=== PATIENT | female | born 1960 | race Caucasian/White ===

== ENCOUNTER → 2020-11-24 | Outpatient (CLI) | payer OTHER ==
--- NOTE | 2020-11-24 08:43 | RAD ---
EXAM: Thyroid sonogram. HISTORY: Hypothyroidism. TECHNIQUE: Sonographic imaging of the thyroid was performed. COMPARISON: None. FINDINGS: The right thyroid lobe measures 3.1 x 0.9 x 0.7 cm. The left thyroid lobe measures 3.4 x 1. 0 x 1.1 cm. The thyroid isthmus measures 2 mm. The thyroid parenchyma is diffusely heterogeneous. The re is a solid-appearing circumscribed hypoechoic nodule with eccentric calcification within the infer ior right thyroid lobe measuring 1.4 x 0.8 x 0.5 cm. IMPRESSION: 1. Mildly small and diffusely heterogeneous thyroid. This can be seen as a sequela of thyroiditis. 2. 1.4 cm right thyroid nodule. TI-RADS Category 4. Electronically signed by: Keke Peters MD (11/24/2020 8:41 AM) [id number]
== END ==
LOC: US 07:47
PROVIDERS: ATTEND Physician Assistant Medical
DX: E04.1 Nontoxic single thyroid nodule (principal); E03.9 Hypothyroidism, unspecified
CPT/HCPCS: 76536

== ENCOUNTER 2021-01-07 05:26 | Emergency (ER) | payer OTHER ==
[~2021-01-07] VITALS: Ht 149.9 cm; Wt 76.4 kg
[2021-01-07 05:49] VITALS: BP 192/107
--- NOTE | 2021-01-07 06:07 | PHYS DOC ---
Past History Past Medical History: No Pertinent History Past Surgical History: Hysterectomy, Other Additional Past Surgical Histo: FOOT SX Alcohol Use: None Adult General Chief Complaint Chief Complaint: FEVER HPI HPI Patient is a 60-year-old female with history of hypothyroid only presenting for nausea and vomit. Reports she made homemade tacos yesterday evening, unsure if they were adequately cooked. Reports waking up this morning at 2:30 AM with waves of nausea and abdominal cramping, subsequently had x3 episodes of nonbloody nonbilious emesis. Also reports a fever T-max 101.0 earlier this morning that resolved with Advil. Reports generalized chills, ongoing nausea and experienced x1 episode of looser than usual stool which concerned her prompting her to come in for evaluation. No known sick contacts but patient admits working at [employer] and unsure if she has been in contact with anyone sick, no recent travel, she has not been vaccinated for COVID-19, no chest pain, ripping or tearing sensation in chest, shortness of breath, ugo abdominal pain, UTI-like symptoms, changes in motor or sensory or neuro function, no lightheadedness or dizziness. Review of Systems Review of Systems Fourteen body systems of review of systems have been reviewed. See HPI for pertinent positives and negative responses, other fish all other systems are negative, non-pertinent or non-contributory Allergies Allergies Allergies Coded Allergies Type Severity Reaction Last Updated Verified No Known Drug Allergies 01/07/21 No Physical Exam Physical Exam Constitutional: Well developed, well nourished, no acute distress, non-toxic appearance. HENT: Normocephalic, atraumatic, bilateral external ears normal, oropharynx moist, no oral exudates, nose normal. Eyes: PERRLA, EOMI, conjunctiva normal, no discharge. Neck: Normal range of motion, no tenderness, supple, no stridor. Cardiovascular: Heart rate regular, sinus rhythm, no murmurs rubs or gallops Lungs & Thorax: Bilateral breath sounds clear to auscultation Abdomen: Bowel sounds normal, soft, no tenderness, no masses, no pulsatile masses. Nonsurgical abdomen, no peritoneal signs Skin: Warm, dry, no erythema, no rash. Back: No tenderness, no CVA tenderness. Extremities: No tenderness, no cyanosis, no clubbing, ROM intact, no edema. Neurologic: Alert and oriented X 3, grossly normal motor & sensory function, no focal deficits noted. Psychologic: Affect normal, judgement normal, mood normal. Current Patient Data Vital Signs Vital Signs Date Time Temp Pulse Resp B/P (MAP) Pulse Ox O2 Delivery O2 Flow Rate FiO2 01/07/21 05:49 95.9 65 18 192/107 (135) 92 Room Air Lab Results Current Medications Medications (Trade) Dose Ordered Sig/Dave Route PRN Reason Start Time Stop Time Status Last Admin Dose Admin Acetaminophen (Tylenol) 650 mg 1X ONCE PO 01/07/21 06:15 01/07/21 06:16 DC 01/07/21 06:19 Ondansetron HCl (Zofran Odt) 4 mg 1X ONCE PO 01/07/21 06:15 01/07/21 06:16 DC 01/07/21 06:20 Clonidine HCl (Catapres) 0.1 mg 1X ONCE PO 01/07/21 07:15 01/07/21 07:26 DC EKG EKG EKG ordered and interpreted by myself 0635 hrs. as sinus rhythm at 63 bpm, prolonged MS at 202 otherwise unremarkable intervals, no axis deviation, no acute ischemic findings, no STEMI Radiology/Procedures Radiology/Procedures [] Heart Score C/O Chest Pain: No HEART Score for Chest Pain: HEART Score for Chest Pain Response (Comments) Value History Slighlty/Non-Suspicious 0 ECG Normal 0 Age >45 - < 65 1 Risk Factors 1 or 2 Risk Factors 1 Total 2 Risk Factors: Risk Factors: DM, Current or recent (<one month) smoker, HTN, HLP, family h istory of CAD, obesity. Risk Scores: Risk Factors: DM, Current or recent (<one month) smoker, HTN, HLP, family history of CAD, obesity. Course & Med Decision Making Course & Med Decision Making Pertinent Labs and Imaging studies reviewed. (See chart for details) [] Dragon Disclaimer Dragon Disclaimer This electronic medical record was generated, in whole or in part, using a voice recognition dictation system. Departure Departure: Impression: Primary Impression: Nausea, vomiting, and diarrhea Additional Impression: Elevated blood pressure reading without diagnosis of hypertension Disposition: HOME / SELF CARE / HOMELESS Condition: IMPROVED Referrals: BALWINDER ROSA (PCP) Patient Instructions: Nausea and Vomiting Additional Instructions: You were seen for nausea, vomit and x1 episode of diarrhea. You most likely have a viral illness which should resolve in the next few days to a week. You were prescribed Zofran which should be used as needed for nausea. In addition, you also had symptoms likely due to your elevated blood pressure despite you not having a diagnosis of hypertension. You were given a medication while in ER to improve this but said medication is for short-term use only. As disclosed, it is pertinent that you keep a blood pressure log at home and bring this to your outpatient primary care visit in upcoming 72 hours for review. You should return to the ED if you develop abdominal pain, fever > 100.3, black/bloody stools, black/bloody vomiting, cannot keep water down, or any other new or concerning symptoms. Scripts Ondansetron (ONDANSETRON ODT) 4 Mg Tab.rapdis 1 TAB PO PRN Q6-8HRS for NAUSEA, #16 TAB Prov: LINA PRATRE DO 01/07/21 Problem Qualifiers LINA PRATER DO Jan 07, 2021 06:07
[2021-01-07] MEDS ORDERED: ACETAMINOPHEN 325 MG TABLET PO ONE (06:15)
[2021-01-07] MEDS ORDERED: ONDANSETRON ODT 4 MG TAB.RAPDIS PO ONE (06:15)
--- NOTE | 2021-01-07 06:37 | EKG ---
[address] [address] Test Date: 2021-01-07 Test Time: 06:28:47 Pat Name: RONNIE COLEMAN Department: Room: Gender: F [employer] Sales Representative: : [id number] Requested By: LINA PRATER Order Number: [id number] Reading MD: Measurements Intervals [place] Rate: 63 P: 30 NV: 202 QRS: 6 QRSD: 100 T: 43 QT: 442 QTc: 456 Interpretive Statements SINUS RHYTHM NORMAL ECG RI6.02 No previous ECG available for comparison
[2021-01-07] MEDS ORDERED: cloNIDine HCL 0.1 MG TABLET PO ONE (07:15)
[2021-01-07] MEDS ORDERED: ONDA4TAB12 PO (07:19)
== END 2021-01-07 07:25 | disposition home or self-care (01) ==
LOC: ER 05:26
DX: R11.2 Nausea with vomiting, unspecified (principal); R19.7 Diarrhea, unspecified; R03.0 Elevated blood-pressure reading, without diagnosis of hypertension; R10.9 Unspecified abdominal pain; R68.83 Chills (without fever); E03.9 Hypothyroidism, unspecified; Z90.710 Acquired absence of both cervix and uterus
CPT/HCPCS: 82947; 93005; 99284; Q0162; 99283

== ENCOUNTER → 2021-11-28 | Outpatient (CLI) | payer OTHER ==
[~2021-11-28] MED LIST: ONDA4TAB12 PO
--- NOTE | 2021-11-28 07:58 | RAD ---
3 views bilateral knees HISTORY: Chronic knee pain AP lateral oblique views There is moderate marginal spurring of the medial compartment and minimal spurring of the patellofemo ral joint. There is no lytic destructive changes. IMPRESSION: Osteoarthrosis especially involving the medial compartment bilaterally. No acute findings. Electronically signed by: Mert Santo III, MD (11/28/2021 7:56 AM) LEIF
== END ==
LOC: RAD 07:41
PROVIDERS: ATTEND Physician Assistant Medical
DX: M17.0 Bilateral primary osteoarthritis of knee (principal); M76.892 Other specified enthesopathies of left lower limb, excluding foot; M76.891 Other specified enthesopathies of right lower limb, excluding foot
CPT/HCPCS: 73562-50